=== PATIENT | female | born 1995 | race African-American/Black ===

== ENCOUNTER 2017-11-07 16:07 | Emergency (ER) | payer SELFPAY ==
[2017-11-07] MEDS ORDERED: IBUPROFEN 200 MG TAB PO ONE (16:47)
[2017-11-07] MEDS ORDERED: IBUPROFEN 400 MG TAB ONE (16:47)
[2017-11-07 16:53] LABS: Urine Blood NEGATIVE (NEG); Urine Glucose NEGATIVE (NEG); Urine Protein NEGATIVE (NEG); Urine Specific Gravity 1.015 (1.005-1.030)
--- NOTE | 2017-11-07 17:30 | RAD REPORT ---
EXAM DESCRIPTION: RAD - Foot Left 3 View - 11/07/2017 5:21 pm CLINICAL HISTORY: PAIN COMPARISON: No comparisons FINDINGS: Soft tissue swelling is seen about the great toe. Minimal avulsion fracture may be present involving the lateral base of the distal phalanx of the great toe. No foreign body.
--- NOTE | 2017-11-07 17:38 | ER ---
Nurse's Notes [facility] Name: Serge Parikh Age: 22 yrs Sex: Female : 1995 Arrival Date: 11/07/2017 Time: 16:08 Bed 19 Private MD: Diagnosis: Fracture of distal phalanx of great toe Presentation: 11/07 16:13 Presenting complaint: Patient states: Left great toe pain after opening door onto toe aj this AM. Transition of care: patient was not received from another setting of care. Onset of symptoms was November 07, 2017. Risk Assessment: Do you want to hurt yourself or someone else? Patient reports no desire to harm self or others. Initial Sepsis Screen: Does the patient meet any 2 criteria? No. Patient's initial sepsis screen is negative. Does the patient have a suspected source of infection? No. Patient's initial sepsis screen is negative. Care prior to arrival: None. 16:13 Method Of Arrival: Ambulatory aj 16:13 Acuity: JESSY 4 aj Triage Assessment: 16:13 General: Appears in no apparent distress. comfortable, Behavior is calm, cooperative, aj appropriate for age. Pain: Complains of pain in left first toe and Left first toenail. Neuro: Level of Consciousness is awake, alert, obeys commands, Oriented to person, place, time, situation, Appropriate for age. Respiratory: Airway is patent Respiratory effort is even, unlabored, Respiratory pattern is regular, symmetrical. Derm: Skin is intact, is healthy with good turgor, Skin is pink, warm \T\ dry. normal. Musculoskeletal: Reports pain in left first toe and Left first toenail. 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 - Social history:: Smoking status: Patient/guardian denies using tobacco. - Ebola Screening: : Patient negative for fever greater than or equal to 101.5 degrees Fahrenheit, and additional compatible Ebola Virus Disease symptoms Patient denies exposure to infectious person Patient denies travel to an Ebola-affected area in the 21 days before illness onset No symptoms or risks identified at this time. Screenin:50 Abuse screen: Denies threats or abuse. Nutritional screening: No deficits noted. em Tuberculosis screening: No symptoms or risk factors identified. Fall Risk None identified. Assessment: 16:35 General: Appears in no apparent distress. uncomfortable, Behavior is calm, cooperative, em Reports bumping toe on door last night. Pain: Complains of pain in left first toe Pain currently is 8 out of 10 on a pain scale. Neuro: Level of Consciousness is awake, alert, obeys commands, Oriented to place, time, situation. Cardiovascular: Capillary refill < 3 seconds Patient's skin is warm and dry. Cardiovascular: Denies chest pain. Respiratory: Airway is patent Respiratory effort is even, unlabored, Respiratory pattern is regular, symmetrical. GI: Abdomen is flat. : Urine is clear. EENT: No signs and/or symptoms were reported regarding the EENT system. Derm: Skin is intact, Skin is pink, warm \T\ dry. Musculoskeletal: Range of motion: limited in left toe. Injury Description: trip injury. 16:45 Reassessment: Patient appears in no apparent distress at this time. I agree with above iw assessment by Emmanuel Gunter LVN. 17:24 Reassessment: Patient appears in no apparent distress at this time. Patient and/or em family updated on plan of care and expected duration. Pain level reassessed. Patient is alert, oriented x 3, equal unlabored respirations, skin warm/dry/pink. Vital Signs: 16:13 BP 138 / 61; Pulse 80; Resp 17; Temp 97.6; Pulse Ox 96% on R/A; Weight 81.65 kg; Height aj 5 ft. 10 in. (177.80 cm); 18:10 BP 132 / 78; Pulse 75; Resp 15; Pulse Ox 97% on R/A; Pain 6/10; em 16:13 Body Mass Index 25.83 (81.65 kg, 177.80 cm) ED Course: 16:08 Patient arrived in ED. as 16:13 Triage completed. aj 16:13 Arm band placed on left wrist. Patient placed in an exam room. 16:15 Natividad Castro NP is [facility]. [facility] 16:15 Kar Ly MD is Attending Physician. 1 16:17 Emmanuel Gunter LVN is Primary Nurse. em 16:50 Patient has correct armband on for positive identification. Bed in low position. Call em light in reach. Adult w/ patient. 16:50 No provider procedures requiring assistance completed. Patient did not have IV access em during this emergency room visit. 17:21 Foot Left 3 View XRAY In Process Unspecified. EDMS 18:10 Ortho shoe applied to left foot. em Administered Medications: 16:46 Drug: Motrin 600 mg Route: PO; em 17:51 Follow up: Response: No adverse reaction; Pain is decreased em Outcome: 17:38 Discharge ordered by MD. rh1 18:11 Discharged to home ambulatory. em 18:11 Condition: good 18:11 Discharge instructions given to patient, Instructed on discharge instructions, follow up and referral plans. Demonstrated understanding of instructions, follow-up care. 18:11 Patient left the ED. em Signatures: Dispatcher [employer] Lizz Malave RN RN aj Munoz, Edgar, LVN LVN em Linh Lewis Irene, RN RN iw Jones, Rachel, NP KNOT BORER rh1
--- NOTE | 2017-11-07 17:38 | EDPHYS ---
Physician Documentation [facility] Name: Serge Parikh Age: 22 yrs Sex: Female : 1995 Arrival Date: 11/07/2017 Time: 16:08 Bed 19 Private MD: ED Physician Kar Ly HPI: 11/07 16:29 This 22 yrs old Black Female presents to ER via Ambulatory with complaints of Toe rh1 Injury. 16:29 Onset: The symptoms/episode began/occurred at 02:00. The patient has not experienced rh1 similar symptoms in the past. The patient has not recently seen a physician. She was walking through a door way, and opened the door into her left great toe, causing pain, swelling. Denies any other injuries, no paresthesias, no deformity.. 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 - Social history:: Smoking status: Patient/guardian denies using tobacco. - Ebola Screening: : Patient negative for fever greater than or equal to 101.5 degrees Fahrenheit, and additional compatible Ebola Virus Disease symptoms Patient denies exposure to infectious person Patient denies travel to an Ebola-affected area in the 21 days before illness onset No symptoms or risks identified at this time. ROS: 16:29 Constitutional: Negative for fever rh1 16:29 MS/extremity: Positive for decreased range of motion, pain, swelling, Negative for paresthesias, tenderness. 16:29 Skin: Negative for abrasions, laceration(s). 16:29 Neuro: Negative for numbness, tingling, weakness. 16:29 All other systems are negative. Exam: 16:29 Constitutional: This is a well developed, well nourished patient who is awake, alert, rh1 and in no acute distress. Head/Face: Normocephalic, atraumatic. Cardiovascular: Regular rate and rhythm with a normal S1 and S2. No gallops, murmurs, or rubs. No JVD. No pulse deficits. Respiratory: Lungs have equal breath sounds bilaterally, clear to auscultation. No rales, rhonchi or wheezes noted. No increased work of breathing. Skin: Warm, dry with normal turgor. Normal color with no rashes, no lesions, and no evidence of cellulitis. 16:29 Musculoskeletal/extremity: Extremities: grossly normal except: noted in the left first toe: decreased ROM, pain, swelling, tenderness, There is no evidence of abrasion, contusion, erythema, laceration, ROM: full passive range of motion, in the right arm, left arm, right leg and left leg and left first toe, limited active range of motion due to pain, in the left first toe, limited passive range of motion due to pain, in the left first toe, Pulses: noted to be 2+ in the right posterior tibial artery, right dorsalis pedis artery, left posterior tibial artery and left dorsalis pedis artery, Perfusion: the extremity is pink, warm, with brisk capillary refill, toes of left foot, Sensation intact. 16:29 Neuro: Orientation: is normal, to person, place \T\ time. Mentation: is normal, lucid, able to follow commands, Motor: is normal, moves all fours, strength is 5/5 in all extremities, Sensation: is normal, no obvious gross deficits, numbness, is not appreciated, tingling, is not appreciated, Gait: is steady, at a normal pace, without difficulty. Vital Signs: 16:13 BP 138 / 61; Pulse 80; Resp 17; Temp 97.6; Pulse Ox 96% on R/A; Weight 81.65 kg; Height aj 5 ft. 10 in. (177.80 cm); 18:10 BP 132 / 78; Pulse 75; Resp 15; Pulse Ox 97% on R/A; Pain 6/10; em 16:13 Body Mass Index 25.83 (81.65 kg, 177.80 cm) aj MDM: 16:29 Patient medically screened. rh1 17:37 Data reviewed: vital signs, nurses notes, lab test result(s), radiologic studies, plain rh1 films, and as a result, I will discharge patient. Data interpreted: Pulse oximetry: on room air is 96 %. Interpretation: normal. Counseling: I had a detailed discussion with the patient and/or guardian regarding: the historical points, exam findings, and any diagnostic results supporting the discharge/admit diagnosis, lab results, radiology results, the need for outpatient follow up, a family practitioner, to return to the emergency department if symptoms worsen or persist or if there are any questions or concerns that arise at home. 11/07 16:45 Order name: Urine Dipstick--Ancillary (enter results) eb 11/07 16:45 Order name: Urine --Ancillary (enter results); Complete Time: 16:57 eb 11/07 16:33 Order name: Urine Dipstick-Ancillary (obtain specimen); Complete Time: 16:46 1 11/07 16:33 Order name: Foot Left 3 View XRAY; Complete Time: 17:36 rh1 11/07 16:46 Order name: Urine Dipstick-Ancillary; Complete Time: 16:57 EDUT 11/07 16:33 Order name: Urine Test (obtain specimen); Complete Time: 16:46 1 11/07 17:37 Order name: Post-op shoe; Complete Time: 18:09 rh1 Administered Medications: 16:46 Drug: Motrin 600 mg Route: PO; em 17:51 Follow up: Response: No adverse reaction; Pain is decreased em Disposition: 18:24 Co-signature as Attending Physician, Kar Ly MD I agree with the assessment and kdr plan of care. Disposition: 11/07/17 17:38 Discharged to Home. Impression: Fracture of distal phalanx of great toe. - Condition is Stable. - Discharge Instructions: Toe Fracture, Cast or Splint Care, Aosv-of-Obvr. - Medication Reconciliation Form, Thank You Letter, Antibiotic Education, Prescription Opioid Use form. - Follow up: Private Physician; When: 1 - 2 days; Reason: Recheck today's complaints, Continuance of care, Re-evaluation by your physician. Follow up: Emergency Department; When: As needed; Reason: Fever > 102 F, If symptoms return, Trouble breathing, Worsening of condition. - Problem is new. - Symptoms have improved. Signatures: Dispatcher [employer] Lizz Malave RN RN aj Rittger, Kevin, MD MD kdr Munoz, Edgar, SNAG GRINDER SNAG GRINDER em Natividad Castro, HEAD BANDER AND LINER OPERATOR HEAD BANDER AND LINER OPERATOR rh1 Corrections: (The following items were deleted from the chart) 16:38 16:29 Neuro: Orientation: is normal, to person, place \T\ time. Mentation: is normal, rh1 lucid, able to follow commands, Motor: is normal, moves all fours, strength is 5/5 in all extremities, Sensation: is normal, no obvious gross deficits, numbness, is not appreciated, tingling, is not appreciated, Gait: is steady, at a normal pace, without difficulty, rh1 16:38 16:29 Musculoskeletal/extremity: Extremities: grossly normal except: rh1 rh1 18:11 17:38 11/07/2017 17:38 Discharged to Home. Impression: Fracture of distal phalanx of em great toe. Condition is Stable. Forms are Medication Reconciliation Form, Thank You Letter, Antibiotic Education, Prescription Opioid Use. Follow up: Private Physician; When: 1 - 2 days; Reason: Recheck today's complaints, Continuance of care, Re-evaluation by your physician. Follow up: Emergency Department; When: As needed; Reason: Fever > 102 F, If symptoms return, Trouble breathing, Worsening of condition. Problem is new. Symptoms have improved. rh1
== END 2017-11-07 18:11 | disposition home or self-care (01) ==
LOC: ER 16:07
DX: S92.422A Displaced fracture of distal phalanx of left great toe, initial encounter for closed fracture (principal); W22.8XXA Striking against or struck by other objects, initial encounter; Y93.89 Activity, other specified; Y92.9 Unspecified place or not applicable
CPT/HCPCS: 81003; 81025; 99283